=== PATIENT | male | born 1935 | race Caucasian/White ===

== ENCOUNTER 2020-07-01 08:49 | Day surgery (SDC) | payer OTHER, SELFPAY ==
[2020-06-03 14:51] VITALS: BMI 24.2
[2020-07-01] VITALS (7 sets, daily range): BP systolic 116–139; BP diastolic 55–74; PULSE 73–85; RESP 16–18; TEMP 36.8–37.2; O2SAT 94–99; BMI 25.3
--- NOTE | 2020-07-01 05:05 | HP_ITS ---
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: No Is patient in pain?: No Allergies No Known Allergies Allergy (Verified 06/03/20 14:51) Medications metformin 500 mg tablet 500 mg PO DAILY 06/03/20 [History Confirmed 06/03/20] triamterene 100 mg capsule 100 mg PO DAILY 06/03/20 [History Confirmed 06/03/20] PFSH Medical History (Updated 06/03/20 @ 14:50 by Meka Martinez) Diabetes (Acute) Dysphagia (Acute) HTN (hypertension) (Chronic) Surgical History (Updated 06/03/20 @ 14:50 by Meka Martinez) History of cholecystectomy (Acute) History of esophageal dilatation (Acute) History of esophagogastroduodenoscopy (EGD) (Acute) Family History (Updated 06/03/20 @ 14:51 by Meka Martinez) Mother No problems noted. HPI HPI HPI: ARLINE ARAIZA, is a 85 M who presents to the office today for HPI HPI Surgical H&P: Yes HPI: ARLINE ARAIZA, is a 85 M who presents to the office today for Dysphagia. He reports he is feeling food catching again. He has had at least 2-3 balloon dilations of his esophagus in the past. He is not currently on a PPI. ROS General General: No weight change, appetite, fatigue, colon cancer, breast cancer or weakness HEENT HEENT: Yes difficulty swallowing; no eye injury, eye surgery, swollen glands or hoarseness Endo Endocrine: Yes diabetes mellitus; no thyroid disease, thyroid cancer, Hair loss, heat intolerance or cold intolerance Musc Musculoskeletal: No back problems, arthritis, rheumatoid arthritis, gout or joint pain Cardio Cardiovascular: Yes high blood pressure; no murmur, pacemaker, heart disease, atrial fibrillation, heart attack, heart stent, palpitations, shortness of breat with exertion or chest pain Psych Psychiatric: No depression, anxiety or hearing voices Resp Respiratory: No shortness of breath, No sleep apnea, No cough, No COPD, No asthma, No emphysema, No wheezing Gastro Gastrointestinal: No abdominal pain, No nausea or vomiting, No diarrhea, No constipation, No blood in stool, No acid reflux, No hemorrhoids, No ulcers, No gallbladder problem, No black,tarry stools Davis Hematologic: No blood thinners, No blood disorders, No bleeding, No anemia, No blood clots Neuro Neurologic: No weakness Exam Const General: cooperative Orientation: alert, oriented x3 Resp Effort & Inspection: normal respiratory effort Auscultation: clear to auscultation bilaterally Cardio Rate: regular rate Rhythm: regular rhythm Heart Sounds: no murmurs GI Inspection: non-distended Palpation: soft, nontender Assessment & Plan Problems 1. Esophageal dysphagia R13.10 Plan The patient has esophageal dysphagia. He has had several balloon dilations in the past. The patient needs to be placed on a PPI and I am unable to order the PPI as he is [facility] and he would like this covered under his insurance. I will ask that the PCP order him a PPI to be on. I will schedule the patient for an EGD with possible balloon dilation. I explained endoscopy in detail to the patient. I explained the risks including but not limited to stroke or heart attack with anesthesia, perforation of the GI tract, bleeding, infection. I explained that any of these could necessitate further emergency surgery. The patient understands and all questions were answered sufficiently. The patient wishes to proceed with procedure. Darío Fernández MD Pager: [facility] [address] [place] [address], [address] [place] [address] Office: Coding Level of Care Code Off vis,new,level 3 Diagnoses Esophageal dysphagia R13.10 ??Dysphagia type: esophageal phase I have re-examined the patient. There are no clinical changes since date of exam.
[2020-07-01] MEDS: Lactated Ringers 1,000 ML 100 ML IV (09:41)
[2020-07-01 09:45] LABS: Bedside Glucose 122 mg/dL (70-110)
--- NOTE | 2020-07-01 11:06 | OP.EGD_ITS ---
Patient Name: Akil Catalan Procedure Date: 07/01/2020 10:49 AM Date of : 1935 Age: 85 Procedure: Upper GI endoscopy Indications: Dysphagia Providers: Darío Fernández MD Referring MD: Reid Escobar Medicines: Monitored Anesthesia Care Patient Profile: This is an 85 year old male. Refer to note in patient chart for documentation of history and physical. Complications: No immediate complications. Estimated blood loss: Minimal. Procedure: Pre-Anesthesia Assessment: - Prior to the procedure, a History and Physical was performed, and patient medications and allergies were reviewed. The patient's tolerance of previous anesthesia was also reviewed. The risks and benefits of the procedure and the sedation options and risks were discussed with the patient. All questions were answered, and informed consent was obtained. Prior Anticoagulants: The patient has taken no previous anticoagulant or antiplatelet agents. After reviewing the risks and benefits, the patient was deemed in satisfactory condition to undergo the procedure. After obtaining informed consent, the endoscope was passed under direct vision. Throughout the procedure, the patient's blood pressure, pulse, and oxygen saturations were monitored continuously. The Endoscope was introduced through the mouth, and advanced to the third part of duodenum. The upper GI endoscopy was accomplished without difficulty. The patient tolerated the procedure well. Scope In: 10:58:17 AM Scope Out: 11:02:17 AM Total Procedure Duration Time 0 hours 4 minutes 0 seconds Findings: One benign-appearing, intrinsic stenosis was found at the gastroesophageal junction. This stenosis was moderately severe and. The stenosis was traversed after dilation. A TTS dilator was passed through the scope. Dilation with a 10-11-12 mm balloon dilator was performed to 13 mm. The dilation site was examined following endoscope reinsertion and showed moderate improvement in luminal narrowing. Estimated blood loss was minimal. The stomach was normal. The examined duodenum was normal. Impression: - Benign-appearing esophageal stenosis. Dilated. - Normal stomach. - Normal examined duodenum. - No specimens collected. Recommendation: - Discharge patient to home. - Resume previous diet. - Continue present medications. - Return to my office in 4 weeks. Procedure Code(s): --- Professional --- 40455, Esophagogastroduodenoscopy, flexible, transoral; with transendoscopic balloon dilation of esophagus (less than 30 mm diameter) Diagnosis Code(s): --- Professional --- K22.2, Esophageal obstruction R13.10, Dysphagia, unspecified CPT copyright 2017 [employer]. All rights reserved. The codes documented in this report are preliminary and upon collet making machine operator review may be revised to meet current compliance requirements. Darío Fernández MD 07/01/2020 11:06:22 AM This report has been signed electronically. Number of Addenda: 0 Note Initiated On: 07/01/2020 10:49 AM
--- NOTE | 2020-07-01 11:06 | OP.CCLET_ITS ---
07/01/2020 Reid Escobar Re : Upper GI endoscopy procedure for Akil Catalan Dear Sach[place] This procedure was performed on Wednesday, July 01, 2020. My impressions and recommendations are as follows: Impressions : - Benign-appearing esophageal stenosis. Dilated. - Normal stomach. - Normal examined duodenum. - No specimens collected. Recommendations : - Discharge patient to home. - Resume previous diet. - Continue present medications. - Return to my office in 4 weeks. My findings are described in the full procedure note, which is enclosed. If I can be of further assistance, please feel free to contact me at Doctor phone number(s): , Work: . Sincerely, Darío Fernández MD 07/01/2020 11:06:22 AM This report has been signed electronically.
== END 2020-07-01 12:06 | disposition home or self-care (01) ==
LOC: EN 08:49 → AC 08:50
PROVIDERS: Visit Provider Surgery
PROC: 0DJ08ZZ Inspection of Upper Intestinal Tract, Via Natural or Artificial Opening Endoscopic (ICD-10-PCS; CPT 43235; principal; 2020-07-01 10:25)
DX: K22.2 Esophageal obstruction (principal); R13.10 Dysphagia, unspecified; E11.9 Type 2 diabetes mellitus without complications; I10 Essential (primary) hypertension; Z79.899 Other long term (current) drug therapy; Z79.84 Long term (current) use of oral hypoglycemic drugs; Z20.828 Contact with and (suspected) exposure to other viral communicable diseases; Z87.891 Personal history of nicotine dependence; Z85.828 Personal history of other malignant neoplasm of skin
CPT/HCPCS: 43249; 82962; 87426; C9803; J7120; J2405

== ENCOUNTER 2020-08-28 11:00 | Outpatient (RCR) | payer MEDICARE, SELFPAY ==
[2020-07-01 09:29] VITALS: BMI 25.3
== END 2020-08-28 23:59 ==
LOC: IMMUN 11:00
PROVIDERS: Visit Provider Family Medicine
DX: Z23 Encounter for immunization (principal)
CPT/HCPCS: 0011A; 0012A; 91301

== ENCOUNTER 2025-01-01 11:16 | Emergency (ER) | payer OTHER, SELFPAY ==
[2025-01-01 11:18] VITALS: BP 151/71; PULSE 103; RESP 18; TEMP 36.9; O2SAT 98
--- NOTE | 2025-01-01 11:41 | EX.ED.VIS.UR ---
HPI HPI - URI History of Present Illness Chief Complaint: Cough Informant: patient Narrative Narrative: 89-year-old male has felt ill for the last 2 or 3 days. He is been up all night coughing, now he is having some sputum production that is a little yellowish no blood. No dyspnea when he is not coughing. Mild bifrontal headache gradual in onset, subjective fevers but afebrile here. No known sick contacts. No travel out of the area. No GI symptoms. No history of COPD or lung disease. ROS ROS ED Constitutional Constitutional ED: Reports fever(s) and subjective; Denies chills Eyes Eyes: Denies change in vision ENT ENT ED: Reports sore throat; Denies ear pain, nasal congestion or rhinorrhea Cardiovascular Cardiovascular: Denies chest pain or palpitations Respiratory/Chest Respiratory/Chest: Reports cough; Denies dyspnea Gastrointestinal Gastrointestinal: Denies abdominal pain, diarrhea, nausea or vomiting Genitourinary Genitourinary ED: Denies dysuria or hematuria Musculoskeletal Musculoskeletal: Denies myalgias or neck pain Integumentary Denies abscess or rash Neurologic Neurologic: Reports headache(s); Denies paresthesias or weakness Psychiatric Psychiatric: Denies depression or suicidal thoughts Endocrine Endocrinology: Denies polydipsia or polyuria [facility] Medical History HTN (hypertension) Diabetes Dysphagia Home Medications ?Medication ?Instructions ?Recorded ?Last Taken ?Type metformin 500 mg tablet 500 mg PO DAILY blood glucose 06/03/20 Unknown History triamterene 100 mg capsule 100 mg PO DAILY water pill 06/03/20 Unknown History omeprazole 20 mg tablet,delayed 20 mg PO DAILY ##60 07/01/20 Unknown Rx release amoxicillin 875 mg-potassium 875 mg PO Q12H #20 TABLETS 01/01/25 Unknown Rx clavulanate 125 mg tablet azithromycin 250 mg tablet 250 mg PO DAILY #4 TABLETS 01/01/25 Unknown Rx Allergy/AdvReac Type Severity Reaction Status Date / Time No Known Allergies Allergy Verified 01/01/25 11:20 Family History (Updated 06/03/20 @ 14:51 by Meka Martinez) Mother No problems noted. Surgical History History of esophageal dilatation History of esophagogastroduodenoscopy (EGD) History of cholecystectomy Social History (Updated 01/01/25 @ 12:02 by Jennifer Ochoa) housing: house Smoking Status: Former smoker EXAM Physical Exam Const Vital Signs: 01/01/25 11:18 01/01/25 12:02 01/01/25 12:15 Temperature 98.4 F Temperature Source Oral Pulse Rate 103 H 89 Respiratory Rate 18 22 H Respiratory Effort Normal Non-Labored Respiratory Depth Normal Respiratory Pattern Normal Tachypnea Blood Pressure 151/71 H Blood Pressure Mean 97 Pulse Ox 98 Oxygen Delivery Method Room Air Positive well nourished and well developed General Appearance ED: well developed and NAD HEENT Reports moist mucous membranes normocephalic and atraumatic Throat: Negative for posterior oropharynx abnormal Eyes PERRL and EOMs intact bilaterally Neck no lymphadenopathy, supple and no meningeal signs Resp normal respiratory effort Resp Narrative: Occasional inspiratory wheezes apices. Per center equal bilaterally. No clear/obvious Rales, exam is limited due to bronchospasm patient continues to cough during exam. He occasionally brings up a small amount of clear sputum. Cardio no murmurs Rate: regular rate Rhythm: regular rhythm GI non-tender and non-distended Auscultation: normoactive bowel sounds Palpation: soft Extremity normal to inspection and full ROM Extremity Narrative: Trace edema in the legs Neuro oriented x3, CN's II-XII intact bilaterally and no sensory deficits noted Sensorium / Orientation: alert Motor Exam: strength 5/5 throughout Skin Lesions: no lesions Rashes: no rashes MDM MDM MDM Narrative Medical decision making narrative: 2 view chest x-ray my interpretation shows an early right-sided infiltrate, radiology in agreement. Patient's hemodynamics remain normal. We ambulated him, he did not become dyspneic, but he did have tachycardia, we put him back on the monitor and he was throwing PVCs but then he would slow down. He did not have any systemic symptoms just persistent coughing. I offered admission he declares prefers to go home which I think is reasonable. He is not septic clinically and this is early. Start him on antibiotics Z-Rambo as well as Augmentin to cover strep pneumonia and mycoplasma. Radiography Diagnostic Testing: Clinical Impression(s) from Imaging Studies Chest X-Ray 01/01/25 12:08 IMPRESSION: Mild increased markings in the right middle lobe suggestive of atelectasis and/or early infiltrate. Reading Location: [place] [address] Rhythm Strip Rhythm Strip: Sinus Tach Rate: 115 Ectopy: PVC(s) Discharge Plan Triage Chief Complaint: Cough ED Provider: Shawn Donahue Dx/Rx/DC Orders Clinical Impression: Pneumonia of right middle lobe due to infectious organism Instructions: ED Pneumonia (Adult) Prescriptions: New azithromycin 250 mg tablet 250 mg PO DAILY Qty: 4 0RF amoxicillin-pot clavulanate 875-125 mg tablet 875 mg PO Q12H Qty: 20 0RF No Action metformin 500 mg tablet 500 mg PO DAILY triamterene 100 mg capsule 100 mg PO DAILY omeprazole 20 MG tablet,delayed release (DR/EC) 20 mg PO DAILY Qty: 60 2RF Primary Care Provider: Awilda Vance Referrals: Ann Marie Stephenson [facility], [facility] [Non-Staff] - 3-5 Days (Call for appointment to follow-up and be checked) Activity Restrictions/Additional Instructions: You can start the Augmentin tonight, but the next dose of azithromycin is tomorrow since you received a dose in the ER and it is once daily. Print Language: Macedonian Disposition Disposition: Home, Self Care
[2025-01-01 12:02] VITALS: O2SAT 96
--- NOTE | 2025-01-01 12:08 | RAD_ITS ---
PROCEDURE: CHEST PA AND LATERAL 01/01/2025 REASON FOR EXAM: COUGH TECHNIQUE: Frontal and lateral views of the chest. COMPARISON: None FINDINGS: Hardware: None Heart: The heart size is normal. Mediastinum: The mediastinal contour is unremarkable. Lungs: Elevation of the anterior right hemidiaphragm. Mild increased markings in the right middle lobe suggestive of either atelectasis and/or early infiltrate. The left lung is clear. Bones: Degenerative changes are identified within the thoracic spine. RAD/Chest PA and Lateral IMPRESSION: Mild increased markings in the right middle lobe suggestive of atelectasis and/ or early infiltrate. Reading Location: [place] [address]
[2025-01-01] MEDS: Albuterol 2.5 MG/3 ML VIAL.NEB. INHALATION (12:14)
[2025-01-01 12:15] VITALS: PULSE 89; RESP 22
[2025-01-01 13:00] VITALS: O2SAT 96
--- NOTE | 2025-01-01 15:08 | ED.RN ---
THIS RN WENT INTO PT ROOM TO GIVE ANTIBIOTICS, PT STATES HE WILL WAIT UNTIL HE PICKS UP HIS PRESCRIPTION FROM [facility].
[2025-01-01 15:09] VITALS: BP 117/80; PULSE 89; RESP 22; TEMP 36.8; O2SAT 99
== END 2025-01-01 15:10 | disposition home or self-care (01) ==
PROVIDERS: Emergency Provider Emergency Medicine; PCP Nurse Practitioner Gerontology; Visit Provider Emergency Medicine
DX: J18.9 Pneumonia, unspecified organism (principal); E11.9 Type 2 diabetes mellitus without complications; Z87.891 Personal history of nicotine dependence; I10 Essential (primary) hypertension; Z79.84 Long term (current) use of oral hypoglycemic drugs; Z90.49 Acquired absence of other specified parts of digestive tract
CPT/HCPCS: 71046; 87631; 94640; 99282